=== PATIENT | female | born 1990 | race Caucasian/White ===

== ENCOUNTER 2021-08-22 11:09 | Emergency (ER) | payer OTHER ==
[2021-08-22 12:32] LABS: BASOPHIL 0.3 % (0-2); EOSINOPHIL 1.5 % (0-5); HGB 12.6 g/dl (12.5-16.0); LYMPHOCYTE 28.1 % (15-48); MCH 28.8 pg (25.0-31.0); MCHC 33.2 g/dL (32.0-36.0); MCV 86.8 fL (78.0-100.0); MONOCYTE 6.3 % (0-12); MPV 9.8 fL (6.0-9.5); NEUTROPHIL 63.6 % (41-80); NRBC 0; PLT 284 K/uL (150-400); RBC 4.38 M/uL (4.20-5.40); RDW 14.3 % (11.5-14.0); WBC 6.7 K/uL (4.0-10.5)
[2021-08-22 12:49] LABS: ALBUMIN 3.7 g/dL (3.4-5.0); BILIRUBIN - TOTAL 0.4 mg/dL (0.2-1.0); BUN/CREAT RATIO (CALC) 9.1 RATIO; CREATININE 0.77 mg/dL (0.51-0.95); POTASSIUM 4.1 mmol/L (3.5-5.1); TOTAL PROTEIN 6.7 g/dL (6.4-8.2)
[2021-08-22 13:46] LABS: BILIRUBIN NEGATIVE (NEGATIVE); BLOOD 3+ Ery/uL (NEGATIVE); CLARITY CLEAR (CLEAR); COLOR YELLOW (YELLOW); GLUCOSE (U) NORMAL (NORMAL); LEUKOCYTES 1+ Leu/uL (NEGATIVE); NITRITE NEGATIVE (NEGATIVE); PROTEIN NEGATIVE (NEGATIVE); UROBILINOGEN 0.2 mg/dL (0.2-1.0); pH 6.5 (5.0-9.0)
[2021-08-22 13:55] LABS: BACTERIA 2+; URINARY WBC RARE
[2021-08-22] MEDS ORDERED: KEFLEX250 MG PO (14:06)
[2021-08-22] MEDS ORDERED: CEPHALEXIN500 MG PO (14:29)
[2021-08-24 22:06] LABS: CHLAMYDIA TRACHOMATIS, NAA Negative (Negative); NEISSERIA GONORRHOEAE, NAA Negative (Negative)
== END 2021-08-22 14:35 | disposition home or self-care (01) ==
LOC: FER 11:09
PROVIDERS: Emergency Medicine
DX: O46.91 Antepartum hemorrhage, unspecified, first trimester (principal); O99.891 Other specified diseases and conditions complicating pregnancy; R82.71 Bacteriuria; Z3A.01 Less than 8 weeks gestation of pregnancy; Z28.310 Unvaccinated for COVID-19; Z88.1 Allergy status to other antibiotic agents; Z88.5 Allergy status to narcotic agent
CPT/HCPCS: 36415; 76801; 80053; 81001; 84702; 85025; 86850; 86900; 86901; 87210; 87491; 87591